=== PATIENT | male | born 1970 | race Two or more races ===

== ENCOUNTER 2016-12-16 12:08 | Inpatient (IN) | payer SELFPAY ==
[2016-12-16] MEDS ORDERED: OXYCODONE-ACETAMINOPHEN 5-325 MG TABLET PO ONE (13:15)
--- NOTE | 2016-12-16 13:22 | ER Document Report ---
ED Neck/Back Problem <SHANIA RENEE - Last Filed: 12/16/16 16:32> - General TRAVEL OUTSIDE OF THE [place] IN LAST 30 DAYS: No - HPI Timing: Constant Quality of pain: Sharp Pain Level: 4 Recent injury: No Associated symptoms: None Exacerbated by: Movement of neck Relieved by: Nothing Similar symptoms previously: No Recently seen / treated by doctor: Yes - [facility] ED <CHARLIE SWENSNO - Last Filed: 12/16/16 19:47> - General Chief Complaint: Neck Pain >24hrs old Stated Complaint: LEFT SIDE UPPER BODY PAIN Time Seen by Provider: 12/16/16 13:01 Notes: 46 yo male c/o left sided neck pain x 2 weeks. worsening x 3 days. no trauma. no radiculopathy. no paresthesia. no fever. pt as evaluated at [facility] ER last week for same. DC'd with Dx of osteoarathritis and treated with Flexeril and Motrin. pt reports no relief of symptoms, swelling worse pt admits to IV drug use. 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 Lives with: Family Family History: Reviewed & Not Pertinent Patient has suicidal ideation: No Patient has homicidal ideation: No - Medical History Medical History: Negative Renal/ Medical History: Denies: Hx Peritoneal Dialysis <CHARLIE SWENSON - Last Filed: 12/16/16 19:47> Review of Systems - Review of Systems Constitutional: No symptoms reported EENT: No symptoms reported Cardiovascular: No symptoms reported Respiratory: No symptoms reported Gastrointestinal: No symptoms reported Genitourinary: No symptoms reported Male Genitourinary: No symptoms reported Musculoskeletal: See HPI, Neck pain Skin: No symptoms reported Hematologic/Lymphatic: No symptoms reported Neurological/Psychological: No symptoms reported <CHARLIE SWENSON - Last Filed: 12/16/16 19:47> Physical Exam - Vital signs Interpretation: Tachycardic - pulse rechecked, 121 - General General appearance: Appears well, Alert - HEENT Head: Normocephalic, Atraumatic Eyes: Scleral icterus Cornea: Normal Pupils: PERRL Tympanic membrane: Normal Pharynx: Normal Neck: Other - + tenderness to posterior neck + swelling to left lateral neck. - Respiratory Respiratory status: No respiratory distress Chest status: Nontender Breath sounds: Normal Chest palpation: Normal - Cardiovascular Rhythm: Regular Heart sounds: Normal auscultation Murmur: No - Abdominal Inspection: Normal Distension: No distension Bowel sounds: Normal Tenderness: Nontender Organomegaly: No organomegaly - Back Back: Normal, Nontender - Extremities General upper extremity: Normal inspection, Nontender, Normal color, Normal ROM , Normal temperature General lower extremity: Normal inspection, Nontender, Normal color, Normal ROM , Normal temperature, Normal weight bearing. No: Aisha's sign - Neurological Neuro grossly intact: Yes Cognition: Normal Orientation: AAOx4 Geo Coma Scale Eye Opening: Spontaneous [place] Coma Scale Verbal: Oriented Geo Coma Scale Motor: Obeys Commands Geo Coma Scale Total: 15 Speech: Normal Motor strength normal: LUE, RUE, LLE, RLE Sensory: Normal - Psychological Associated symptoms: Normal affect, Normal mood - Skin Skin Temperature: Warm Skin Moisture: Dry Skin Color: Normal <CHARLIE SWENSON - Last Filed: 12/16/16 19:47> - Vital signs Vitals: Temp Pulse Resp BP Pulse Ox 98.0 F 141 H 14 127/88 H 96 12/16/16 12:20 12/16/16 12:20 12/16/16 12:20 12/16/16 12:20 12/16/16 12:20 Course - Laboratory Result Diagrams: 12/16/16 13:27 12/16/16 13:27 - Consults Dr. Medina Time consulted: 16:31 <SHANIA RENEE - Last Filed: 12/16/16 16:32> - Laboratory Result Diagrams: 12/16/16 13:27 12/16/16 13:27 - Transfer of Care Care transferred to following provider: Dr Renee <CHARLIE SWENSON - Last Filed: 12/16/16 19:47> - Re-evaluation Re-evalutation: 12/16/16 15:11 Assumed care of the patient. Reexamined. He is complaining mostly of left- sided neck pain and swelling extending to the left AC joint. Increased pain with left arm movement and fever. This has been progressively worsening. White blood cell count is 23.7. Potassium reported in the 2 range so we will start supplementation this. Vancomycin is already been ordered and Rocephin has already been completed. Awaiting CT scan of the neck. On exam he has general upper torso erythema consistent with sun exposure though he does seem to have tenderness and some edema at the left AC joint the edema seems more significant with some induration over the left posterior and lateral regions of the neck. Tachycardic but no obvious murmur noted. 12/16/16 16:24 T findings showed predominantly cellulitis of the left neck region extending from C1 to the left trapezius with abscess is too small to drain. For a was not significant of the chest. Neck clearly appears to be source though patient denied any injections in that region. Injected into the left upper extremity though. His potassium came back very low at 2.9. I will be contacting admitting doctors for admission at this point. (SHANIA RENEE) 12/16/16 13:22 I reviewed patient's discharge papers from [facility]. pt had a cervical CT wo which was negative other than osteoarthritis. 12/16/16 14:19 pt's WBC elevated at 23. will order blood cultures, lactic acid and IV antibiotics. discussed patient with Dr Plasencia. agrees with plan. recommends soft tissue neck CT with contrast. 12/16/16 14:[address] Renee 12/16/16 19:45 (CHARLIE SWENSON) - Vital Signs Vital signs: Temp Pulse Resp BP Pulse Ox 98.0 F 123 H 14 127/88 H 100 12/16/16 12:20 12/16/16 13:12 12/16/16 12:20 12/16/16 12:20 12/16/16 13:12 - Laboratory Laboratory results interpreted by me: 12/16/16 12/16/16 12/16/16 13:27 13:27 16:00 WBC 23.2 H Seg Neuts % (Manual) 87 H Lymphocytes % (Manual) 0 L Abs Neuts (Manual) 21.3 H Abs Lymphs (Manual) 0.0 L Abs Monocytes (Manual) 1.9 H Sodium 127.5 L Potassium 2.9 L* Chloride 85 L Carbon Dioxide 31 H Glucose 116 H Total Bilirubin 3.1 H Direct Bilirubin 2.5 H Alkaline Phosphatase 153 H Albumin 3.2 L Urine Blood SMALL H Urine Urobilinogen 4.0 H - Consults Dr. Medina Reason for consultation: 12/16/16 16:32 Consult for admission. PCP has no PCP. (SHANIA RENEE) Discharge - Discharge Unit Admitted: Medical Floor <SHANIA RENEE - Last Filed: 12/16/16 16:32> <CHARLIE SWENSON - Last Filed: 12/16/16 19:47> - Discharge Clinical Impression: Cellulitis and abscess of neck Condition: Fair Disposition: ADMITTED INPATIENT
[2016-12-16 13:48] LABS: HEMATOCRIT 42.3 % (37.9-51.0); HEMOGLOBIN 14.3 g/dL (13.5-17.0); HGB HCT DIFFERENCE 0.6; MEAN CORPUSCULAR HEMOGLOBIN 29.9 pg (27.0-33.4); MEAN CORPUSCULAR HGB CONC 33.8 g/dL (32.0-36.0); MEAN CORPUSCULAR VOLUME 88 fl (80-97); RED BLOOD COUNT 4.79 10^6/uL (4.35-5.55); RED CELL DISTRIBUTION WIDTH 13.3 % (11.5-14.0); WHITE BLOOD COUNT 23.2 10^3/uL (4.0-10.5)
[2016-12-16 14:20] LABS: BAND NEUTROPHILS % (MANUAL) 5 % (3-5); BASOPHILS % (MANUAL) 0 % (0-2); EOSINOPHILS % (MANUAL) 0 % (0-6); LYMPHOCYTES % (MANUAL) 0 % (13-45); TOTAL CELLS COUNTED 100
[2016-12-16 14:22] LABS: RBC MORPHOLOGY COMMENT NORMO-CYTIC/CHROMIC; TOXIC GRANULATION 1+; TOXIC VACUOLATION PRESENT
[2016-12-16] MEDS ORDERED: NORMAL SALINE 1000 ML 2,000 ML IV PRN (14:33)
[2016-12-16] MEDS ORDERED: VANCOMYCIN HCL INJ 1000 MG VIAL IV ONE ×2 (14:34→16:45)
[2016-12-16] MEDS ORDERED: CEFTRIAXONE RTU 1 GM/D5W 50 ML IV ONE (14:34)
[2016-12-16 14:50] LABS: ALANINE AMINOTRANSFERASE 71 U/L (21-72); ALBUMIN 3.2 g/dL (3.5-5.0); ALKALINE PHOSPHATASE 153 U/L (38-126); ANION GAP 12 (5-19); ASPARTATE AMINO TRANSFERASE 46 U/L (17-59); BILIRUBIN,DIRECT 2.5 mg/dL (0.0-0.4); BILIRUBIN,TOTAL 3.1 mg/dL (0.2-1.3); BLOOD UREA NITROGEN 14 mg/dL (7-20); CALCIUM 8.7 mg/dL (8.4-10.2); CARBON DIOXIDE 31 mmol/L (22-30); CHLORIDE 85 mmol/L (98-107); CREATININE RESULT 0.71 mg/dL (0.52-1.25); GLUCOSE 116 mg/dL (75-110); SODIUM 127.5 mmol/L (137-145); TOTAL PROTEIN 6.6 g/dL (6.3-8.2)
[2016-12-16] MEDS ORDERED: POTASSIUM CHLORIDE 10 MEQ TABLET.SA PO ONE (15:03)
[2016-12-16 15:14] LABS: POTASSIUM 2.9 mmol/L (3.6-5.0)
--- NOTE | 2016-12-16 15:21 | RADIOLOGY REPORT (SQ) ---
EXAM DESCRIPTION: CHEST SINGLE VIEW COMPLETED DATE/TIME: 12/16/2016 3:13 pm REASON FOR STUDY: Fever COMPARISON: None. EXAM PARAMETERS: NUMBER OF VIEWS: One view. TECHNIQUE: Single frontal radiographic view of the chest acquired. RADIATION DOSE: NA LIMITATIONS: None. FINDINGS: LUNGS AND PLEURA: No opacities, masses or pneumothorax. No pleural effusion. Linear atele ctasis is identified in the left lung base. MEDIASTINUM AND HILAR STRUCTURES: No masses. Contour normal. HEART AND VASCULAR STRUCTURES: Heart normal in size. Normal vasculature. BONES: No acute findings. HARDWARE: None in the chest. OTHER: No other significant finding. IMPRESSION: NO ACUTE RADIOGRAPHIC FINDING IN THE CHEST. TECHNICAL DOCUMENTATION: JOB ID: [id number]
--- NOTE | 2016-12-16 15:49 | RADIOLOGY REPORT (SQ) ---
EXAM DESCRIPTION: CT SOFT TISSUE NECK WITH COMPLETED DATE/TIME: 12/16/2016 3:22 pm REASON FOR STUDY: neck pain and swelling, IV drug user COMPARISON: None. TECHNIQUE: Post IV contrasted scanning from skull base through lung apices with review of bone, soft tissue and lung windows. Reconstructed coronal and sagittal MPR images reviewed. All images stored on PACS. All CT scanners at this facility use dose modulation, iterative reconstruction, and/or weight based d osing when appropriate to reduce radiation dose to as low as reasonably achievable (ALARA). [facility]: Dose Right [facility]: CareDose [facility]: Dose Right [facility]: Teradose 4D [facility]: Maximus CONTRAST TYPE AND DOSE: contrast/concentration: Isovue 370.00 mg/ml; Total Contrast Delivered: 74.0 ml; Total Saline Delivered: 40.1 ml RENAL FUNCTION: Creatinine 0.71 RADIATION DOSE: Up-to-date CT equipment and radiation dose reduction techniques were employed. CTDIv ol: 9.8 mGy. DLP: 347 mGy-cm. . LIMITATIONS: Study is limited due to artifact related to dental hardware. FINDINGS: SKULL BASE: Intact. MAJOR SALIVARY GLANDS: No solid or cystic masses. No inflammatory changes. LYMPHADENOPATHY: No adenopathy. MUCOSAL MASSES OR ASYMMETRY: No mucosal masses or asymmetry. LARYNX/CORDS: No abnormal findings. VASCULAR STRUCTURES: The major vessels are patent. LUNG APICES: Clear. BONES: Intact. THYROID: Normal size. No masses. PARANASAL SINUSES: Clear. OTHER: There is soft tissue asymmetry in the cervical musculature posterolaterally on the left with l oss of the normal fat and soft tissue planes and with relative low density areas being identified shyanne picious for abscess collections. These findings extend from the C1 level to the supraclavicular leve l on the left. IMPRESSION: Soft tissue asymmetry in the cervical musculature posterolaterally on the left as noted above with relative low density areas being identified suspicious for abscess collections. Clinical correlation is recommended. Other findings as noted above TECHNICAL DOCUMENTATION: JOB ID: [id number] Quality ID # [id number]: Final reports with documentation of one or more dose reduction techniques (e.g., Au tomated exposure control, adjustment of the mA and/or kV according to patient size, use of iterative reconstruction technique) 2010 [employer]- All Rights Reserved
[2016-12-16 16:36] LABS: APPEARANCE,URINE CLEAR; BILIRUBIN,URINE NEGATIVE (NEGATIVE); GLUCOSE, URINE NEGATIVE (NEGATIVE); KETONES,URINE NEGATIVE (NEGATIVE); LEUKOCYTE ESTERASE,URINE NEGATIVE (NEGATIVE); NITRITE,URINE NEGATIVE (NEGATIVE); PROTEIN,URINE NEGATIVE (NEGATIVE); URINE SPECIFIC GRAVITY 1.018
[2016-12-16 16:45] LABS: URINE BARBITURATES SCREEN NEGATIVE; URINE METHADONE SCREEN NEGATIVE; URINE OPIATES LOW UNCONFIRMED POSITIVE; URINE PHENCYCLIDINE SCREEN NEGATIVE
[2016-12-16] MEDS ORDERED: ACETAMINOPHEN 325 MG TABLET PO PRN (17:08)
[2016-12-16] MEDS ORDERED: ONDANSETRON 4 MG TAB.RAPDIS PO PRN (17:08)
[2016-12-16] MEDS ORDERED: ONDANSETRON HCL INJ/PF 4 MG/2 ML SDV IV PRN (17:08)
[2016-12-16] MEDS ORDERED: VANCOMYCIN HCL 0 MG in DEXTROSE 5%-WATER 250 ML IV NR (17:15)
--- NOTE | 2016-12-16 17:22 | PDOC H&P ---
History of Present Illness Admission Date/PCP: 12/16/16 16:51 Patient complains of: Fever and pain in the left neck History of Present Illness: GRECIA SEVERINO is a 46 year old male IV drug abuser who presents with complaints of left neck and shoulder pain along with fever up to 102. Patient reports that approximately 6 days ago he began to have pain in his left neck. This was after injecting some heroin into his left arm. Patient reports he had worsening swelling and has developed fever up to 102. He has difficulty turning his neck because of pain but does not have any photophobia and has no tenderness over the midline spinal area. CT of the neck shows multiple abscess and physical exam shows cellulitis of the left neck and left shoulder. The patient denies any shortness of breath or chest pain. Denies any visual changes. He denies any focal weakness or sensory changes in his arms or legs. Denies any bowel or bladder dysfunction. Past Medical History Cardiac Medical History: Reports: None Pulmonary Medical History: Reports: None EENT Medical History: Reports: None Neurological Medical History: Reports: None Endocrine Medical History: Reports: None Renal/ Medical History: Reports: None Malignancy Medical History: Reports: None Musculoskeltal Medical History: Reports: None Skin Medical History: Reports: None Psychiatric Medical History: Reports: Substance Abuse Traumatic Medical History: Reports: None Hematology: Reports: None Past Surgical History Past Surgical History: Reports: Orthopedic Surgery - Repair of hand fracture Social History Information Source: Parent Lives with: Family Smoking Status: Current Every Day Smoker Frequency of Alcohol Use: Occasional Hx Recreational Drug Use: Yes Drugs: Heroin Hx Prescription Drug Abuse: No - Advance Directive Resuscitation Status: Full Code Family History Family History: Father at age 56 with melanoma. Mother at age 65 and had Alzheimer's Parental Family History Reviewed: Yes Children Family History Reviewed: No Sibling(s) Family History Reviewed.: No Medication/Allergy Allergies/Adverse Reactions: No Known Allergies Allergy (Unverified 12/16/16 13:39) Review of Systems Constitutional: PRESENT: fatigue, fever(s). ABSENT: chills, headache(s), night sweats, weight gain, weight loss Eyes: ABSENT: visual disturbances Ears: ABSENT: hearing changes Cardiovascular: ABSENT: chest pain, dyspnea on exertion, edema, orthropnea, palpitations Respiratory: ABSENT: cough, hemoptysis Gastrointestinal: ABSENT: abdominal pain, constipation, diarrhea, hematemesis, hematochezia, nausea, vomiting Genitourinary: ABSENT: dysuria, hematuria Musculoskeletal: PRESENT: other - Swelling and pain in the left neck and shoulder area. Integumentary: PRESENT: other - Swelling of the left neck and shoulder area Neurological: ABSENT: abnormal gait, abnormal speech, confusion, dizziness, focal weakness, syncope Psychiatric: ABSENT: anxiety, depression Endocrine: ABSENT: cold intolerance, heat intolerance, polydipsia, polyuria Hematologic/Lymphatic: ABSENT: easy bleeding, easy bruising Physical Exam Vital Signs: Temp Pulse Resp BP Pulse Ox 98.0 F 123 H 14 127/88 H 100 12/16/16 12:20 12/16/16 13:12 12/16/16 12:20 12/16/16 12:20 12/16/16 13:12 General appearance: PRESENT: no acute distress, well-developed, well-nourished Head exam: PRESENT: atraumatic, normocephalic Eye exam: PRESENT: conjunctiva pink, EOMI, PERRLA. ABSENT: scleral icterus Ear exam: PRESENT: normal external ear exam Mouth exam: PRESENT: moist, tongue midline Neck exam: PRESENT: other - Soft tissue swelling on the left lateral neck involving the left paraspinal muscles down to the left AC joint.. ABSENT: carotid bruit, JVD, lymphadenopathy, thyromegaly Respiratory exam: PRESENT: clear to auscultation yasmine. ABSENT: rales, rhonchi, wheezes Cardiovascular exam: PRESENT: RRR. ABSENT: diastolic murmur, rubs, systolic murmur Pulses: PRESENT: normal dorsalis pedis pul Vascular exam: PRESENT: normal capillary refill GI/Abdominal exam: PRESENT: normal bowel sounds, soft. ABSENT: distended, guarding, mass, organolmegaly, rebound, tenderness Rectal exam: PRESENT: deferred Extremities exam: ABSENT: calf tenderness, clubbing, pedal edema Neurological exam: PRESENT: alert, awake, oriented to person, oriented to place , oriented to time, oriented to situation, CN II-XII grossly intact. ABSENT: motor sensory deficit Psychiatric exam: PRESENT: appropriate affect Skin exam: PRESENT: other - Erythema and swelling of the left neck down to the left AC joint Results Impressions: Soft Tissue Neck CT 12/16/16 14:35 IMPRESSION: Soft tissue asymmetry in the cervical musculature posterolaterally on the left as noted above with relative low density areas being identified suspicious for abscess collections. Clinical correlation is recommended. Other findings as noted above Chest X-Ray 12/16/16 14:42 IMPRESSION: NO ACUTE RADIOGRAPHIC FINDING IN THE CHEST. Assessment & Plan - Diagnosis (1) Cellulitis and abscess of neck Is this a current diagnosis for this admission?: YesPlan: Patient has been injecting IV drugs. He has soft tissue swelling of the left neck and shoulder. CT scan shows several small abscesses. The patient has no evidence for discitis on exam. Spine is nontender to palpation and he has normal neurological exam. We will start on IV vancomycin and Zosyn. Will consult general surgery to see if any of these areas need to be opened up. Patient has no evidence for endocarditis on exam. (2) IV drug abuse Is this a current diagnosis for this admission?: YesPlan: Patient has been using IV heroin but does not abuse any other drugs. - Time Time Spent: 50 to 70 Minutes - Inpatient Certification Medical Necessity: Need for IV Antibiotics
[2016-12-16] MEDS: NORMAL SALINE 1000 ML 1,000 ML IV PRN (19:55)
[2016-12-16] MEDS: PIPERACILLIN SODIUM/TAZOBACTAM 3.375 GM in NORMAL SALINE 100 ML IV SCH (20:28)
[2016-12-16] MEDS: HYDROMORPHONE HCL INJ/PF 2 MG/ML AMPULE IV PRN (20:29)
--- NOTE | 2016-12-16 20:49 | PDOC CONSULTATION ---
Consultation Consult Date: 12/16/16 Consult reason:: left neck and chest cellulitis with possible deep neck abscess History of Present Illness Admission Date/PCP: 12/16/16 17:08 History of Present Illness: GRECIA SEVERINO is a 46 year old male IV heroin abuser who presents with complaints of left neck and shoulder pain along with fever up to 102 which started approximately 6 days ago after he injected some heroin into his left arm beforehand. The patient reports he had worsening swelling and has developed fever up to 102. He has difficulty turning his neck because of pain; denies headache, photophobia, and has no tenderness over the midline spinal area. A CT of the neck soft tissue shows multiple abscess and he has severe swelling of the left neck and left shoulder. Past Medical History Cardiac Medical History: Reports: None Pulmonary Medical History: Reports: None EENT Medical History: Reports: None Neurological Medical History: Reports: None Endocrine Medical History: Reports: None Renal/ Medical History: Reports: None Malignancy Medical History: Reports: None Musculoskeltal Medical History: Reports: None Skin Medical History: Reports: None Psychiatric Medical History: Reports: Substance Abuse Psychiatric History Note: admits to the use of heroin during the past year Traumatic Medical History: Reports: None Hematology: Reports: None Past Surgical History Past Surgical History: Reports: Orthopedic Surgery - Repair of hand fracture Social History Lives with: Family Smoking Status: Current Every Day Smoker Frequency of Alcohol Use: Occasional Hx Recreational Drug Use: Yes Drugs: Heroin Hx Prescription Drug Abuse: No - Advance Directive Resuscitation Status: Full Code Family History Family History: Reviewed & Not Pertinent Parental Family History Reviewed: Yes Children Family History Reviewed: Yes Sibling(s) Family History Reviewed.: Yes Medication/Allergy Allergies/Adverse Reactions: No Known Allergies Allergy (Unverified 12/16/16 13:39) Physical Exam Vital Signs: Temp Pulse Resp BP Pulse Ox 97.8 F 115 H 17 121/75 99 12/16/16 17:43 12/16/16 17:43 12/16/16 17:43 12/16/16 17:43 12/16/16 17:43 Results Impressions: Soft Tissue Neck CT 12/16/16 14:35 IMPRESSION: Soft tissue asymmetry in the cervical musculature posterolaterally on the left as noted above with relative low density areas being identified suspicious for abscess collections. Clinical correlation is recommended. Other findings as noted above Chest X-Ray 12/16/16 14:42 IMPRESSION: NO ACUTE RADIOGRAPHIC FINDING IN THE CHEST. Assessment & Plan - Plan Summary Plan Summary: Assessment: Left neck and chest edema and multiple abscesses on CT scan following heroin injection into the left upper extremity vein 1 week ago Patient on vanco/Zosyn Severe leuycocytosis (23k) Plan: This patient requires immediate ENT consultation as the neck deep abscesses represent a difficult surgical problem that needs to be addressed by a neck surgeon. Dr. Perea from ENT has been consulted by the Hospitalist Dr. Guthrie and will take over the surgical care of this patient. I will sign off. Please, call us with questions.
[2016-12-16] MEDS ORDERED: DEXAMETHASONE SOD PHOS INJ 10 MG/1 ML VIAL IV ONE (21:45)
--- NOTE | 2016-12-16 22:19 | CONSULTATION REPORT E ---
Consultation Report NAME: GRECIA SEVERINO : 1970 AGE: 46Y DATE: 12/16/2016 414 A TO: SEFERINO ZUNIGA III, M.D. FROM: Requesting Physician PRESENT ILLNESS: The patient is a 46-year-old male who freely admits to abusing heroin with placing the drug in his left arm and noted some onset of discomfort in the posterior aspect of the left side of his neck approximately 6 days ago. Four days ago this became increasingly uncomfortable. He presented himself to a [facility] where a CAT scan was obtained and the patient was told that he had simply arthritis of his cervical spine and no particular treatment was offered. His symptoms have increased and he presented himself to the emergency room at [facility] for evaluation. His temperature has ranged to 102. His white count is 23,000 with a left shift towards a neutrophilic count. A CT scan raised a question of multiple abscesses versus cellulitis with phlegmon formation in the posterior aspect of the left neck. The patient has been admitted to the hospitalist service and Dr. Sohail Gilman contacted me for an urgent consultation. The patient has been started on IV vancomycin and IV Zosyn. He thought perhaps he might have had some small pimples in the back of his scalp on both sides, although he did not manipulate them a great deal. He has had no penetrating injuries to his left neck. He has not had this kind of problem presented in the past. PHYSICAL EXAMINATION: Bedside examination showed a well-developed, quite rabago-appearing 46-year-old gentleman in no acute distress and certainly with no airway problems. He has a full face tamez, mustache and thinning hair. In palpation of his neck, there is erythema and diffuse swelling from the occiput down to the clavicle on the left side, but this is so tense it is impossible to determine any fluctuance, plus it is quite tender. There is no similar problem on the right side. IMPRESSION: My impression is that he has cellulitis and phlegmon formation with possible early abscess formation in the posterior neck on the left side. RECOMMENDATIONS: I agree with his intravenous antibiotic therapy. I would add Decadron 10 mg IV every 6 hours immediately. I will follow the patient along with you. I would keep him n.p.o. until I can see him at noon tomorrow to determine which direction this infection seems to be headed. If he gets no improvement, a repeat CT scan can be considered and the patient may require general anesthesia and incision and drainage of these multiple abscesses in the left side of his neck. If he gets some dramatic improvement, we may persist with his intravenous antibiotic therapy for the next few days. I certainly agree with the ordering of blood cultures for this patient also. Thank you very much for this consultation. DICTATING PHYSICIAN: SEFERINO ZUNIGA III M.D. [id number] PHY#: [id number] ID: [id number] JOB#: [id number] ACCT: [id number] cc:SEFERINO ZUNIGA III, M.D. > MTDD
[2016-12-17] MEDS: VANCOMYCIN HCL 1,000 MG in DEXTROSE 5%-WATER 250 ML IV SCH ×3 (01:30→18:37)
[2016-12-17] MEDS: PIPERACILLIN SODIUM/TAZOBACTAM 3.375 GM in NORMAL SALINE 100 ML IV SCH ×3 (03:12→18:35)
[2016-12-17] MEDS: DEXAMETHASONE SOD PHOS INJ 10 MG/1 ML VIAL IV SCH ×3 (03:13→18:35)
[2016-12-17] MEDS: NORMAL SALINE 1000 ML 1,000 ML IV PRN (05:20)
[2016-12-17 06:29] LABS: ANION GAP 10 (5-19); BLOOD UREA NITROGEN 11 mg/dL (7-20); CALCIUM 8.2 mg/dL (8.4-10.2); CARBON DIOXIDE 29 mmol/L (22-30); CHLORIDE 93 mmol/L (98-107); CREATININE RESULT 0.57 mg/dL (0.52-1.25); GLUCOSE 128 mg/dL (75-110); POTASSIUM 3.2 mmol/L (3.6-5.0); SODIUM 131.7 mmol/L (137-145)
[2016-12-17 06:37] LABS: HEMATOCRIT 38.4 % (37.9-51.0); HEMOGLOBIN 13.2 g/dL (13.5-17.0); HGB HCT DIFFERENCE 1.2; MEAN CORPUSCULAR HGB CONC 34.2 g/dL (32.0-36.0); MEAN CORPUSCULAR VOLUME 88 fl (80-97); RED BLOOD COUNT 4.39 10^6/uL (4.35-5.55); RED CELL DISTRIBUTION WIDTH 13.5 % (11.5-14.0); WHITE BLOOD COUNT 19.5 10^3/uL (4.0-10.5)
[2016-12-17 07:07] LABS: BAND NEUTROPHILS % (MANUAL) 14 % (3-5); BASOPHILS % (MANUAL) 0 % (0-2); EOSINOPHILS % (MANUAL) 0 % (0-6); LYMPHOCYTES % (MANUAL) 1 % (13-45); RBC MORPHOLOGY COMMENT NORMO-CYTIC/CHROMIC; TOTAL CELLS COUNTED 100; TOXIC GRANULATION 1+; TOXIC VACUOLATION PRESENT
[2016-12-17] MEDS: HYDROMORPHONE HCL INJ/PF 2 MG/ML AMPULE IV PRN (09:20)
[2016-12-17] MEDS ORDERED: POTASSIUM CHLORIDE 10 MEQ TABLET.SA PO SCH (10:00)
--- NOTE | 2016-12-17 10:50 | PDOC PROGRESS REPORT ---
Subjective Progress Note for:: 12/17/16 Subjective:: Continues to complain of pain in the left side of his neck. Physical Exam Vital Signs: Temp Pulse Resp BP Pulse Ox 97.8 F 102 H 18 135/73 H 96 12/17/16 07:18 12/17/16 07:18 12/17/16 07:18 12/17/16 07:18 12/17/16 07:18 Intake & Output 12/16/16 12/17/16 12/18/16 06:59 06:59 06:59 Intake Total 0 Balance 0 Weight 67.5 kg General appearance: PRESENT: no acute distress Eye exam: PRESENT: conjunctiva pink. ABSENT: scleral icterus Mouth exam: PRESENT: moist, tongue midline Neck exam: PRESENT: tenderness - Tenderness and soft tissue swelling on the left side of his neck. This is only slightly decreased from yesterday. Still with erythema. ABSENT: carotid bruit, JVD, lymphadenopathy Respiratory exam: PRESENT: clear to auscultation yasmine. ABSENT: rales, rhonchi, wheezes Cardiovascular exam: PRESENT: RRR. ABSENT: diastolic murmur, rubs, systolic murmur GI/Abdominal exam: PRESENT: normal bowel sounds, soft. ABSENT: distended, guarding, mass, organolmegaly, rebound, tenderness Extremities exam: ABSENT: calf tenderness, clubbing, pedal edema Neurological exam: PRESENT: alert, awake, oriented to person, oriented to place , oriented to time, oriented to situation, CN II-XII grossly intact. ABSENT: motor sensory deficit Psychiatric exam: PRESENT: appropriate affect Skin exam: PRESENT: dry, intact, warm. ABSENT: cyanosis, rash Results Laboratory Results: 12/17/16 04:22 12/17/16 04:22 12/17/16 12/17/16 04:22 04:22 WBC 19.5 H RBC 4.39 Hgb 13.2 L Hct 38.4 MCV 88 MCH 30.0 MCHC 34.2 RDW 13.5 Plt Count 157 Seg Neutrophils % Not Reportable Lymphocytes % Not Reportable Monocytes % Not Reportable Eosinophils % Not Reportable Basophils % Not Reportable Absolute Neutrophils Not Reportable Absolute Lymphocytes Not Reportable Absolute Monocytes Not Reportable Absolute Eosinophils Not Reportable Absolute Basophils Not Reportable Sodium 131.7 L Potassium 3.2 L Chloride 93 L Carbon Dioxide 29 Anion Gap 10 BUN 11 Creatinine 0.57 Est GFR ( Amer) > 60 Est GFR (Non-Af Amer) > 60 Glucose 128 H Calcium 8.2 L Impressions: Soft Tissue Neck CT 12/16/16 14:35 IMPRESSION: Soft tissue asymmetry in the cervical musculature posterolaterally on the left as noted above with relative low density areas being identified suspicious for abscess collections. Clinical correlation is recommended. Other findings as noted above Chest X-Ray 12/16/16 14:42 IMPRESSION: NO ACUTE RADIOGRAPHIC FINDING IN THE CHEST. Assessment & Plan - Diagnosis (1) Cellulitis and abscess of neck Is this a current diagnosis for this admission?: YesPlan: Patient has been injecting IV drugs. He has soft tissue swelling of the left neck and shoulder. CT scan shows several small abscesses. The patient has no evidence for discitis on exam. Spine is nontender to palpation and he has normal neurological exam. Continue with vancomycin and Zosyn. ENT has evaluated the patient and will reevaluate the patient today to see if he needs any surgical intervention (2) IV drug abuse Is this a current diagnosis for this admission?: YesPlan: Patient has been using IV heroin but does not abuse any other drugs. - Time Time Spent with patient: 25-34 minutes - Inpatient Certification Medical Necessity: Need for IV Antibiotics
[2016-12-17] MEDS ORDERED: HYDROMORPHONE HCL INJ/PF 2 MG/ML AMPULE IV PRN (11:26)
[2016-12-17] MEDS ORDERED: ONDANSETRON HCL INJ/PF 4 MG/2 ML SDV IV PRN (11:27)
[2016-12-17] MEDS ORDERED: ONDANSETRON 4 MG TAB.RAPDIS PO PRN (11:27)
--- NOTE | 2016-12-17 13:29 | PDOC TRANSFER SUMMARY ---
General Admission Date/PCP: 12/16/16 17:08 Transfer Date: 12/17/16 Accepting Facility: [facility] Accepting Physician: dr Ruben Ozuna Resuscitation Status: Full Code - Transfer Diagnosis (1) Cellulitis and abscess of neck Is this a current diagnosis for this admission?: YesDiagnosis Summary: Growing gram-positive cocci from 2/2 blood cultures. Currently on vancomycin and Zosyn (2) IV drug abuse Is this a current diagnosis for this admission?: Yes - Transfer Medications Home Medications: No Home Medications 12/16/16 Transfer Medications: Current Medications Acetaminophen (Tylenol 325 Mg Tablet) 650 mg PO Q4HP PRN PRN Reason: FOR PAIN OR TEMP Stop: 01/15/17 17:07 Dexamethasone Sodium Phosphate (Decadron Inj 10 Mg/1 Ml Vial) 10 mg IV Q6A [facility] Stop: 01/16/17 02:59 Last Admin: 12/17/16 08:16 Dose: 10 mg Hydromorphone HCl (Dilaudid Inj/Pf 2 Mg/Ml Ampule) 1 mg IV Q4HP PRN PRN Reason: FOR PAIN Stop: 12/23/16 17:12 Sodium Chloride (Nacl 0.9% 1000 Ml Iv Soln) 1,000 mls @ 150 mls/hr IV CONTINUOUS PRN PRN Reason: THIS MED IS NOT "PRN" Stop: 01/15/17 17:07 Last Admin: 12/17/16 05:20 Dose: 1,000 ml Piperacillin Sod/Tazobactam (Sod 3.375 gm/ Sodium Chloride) 100 mls @ 200 mls/ hr IV Q6A RAMON Stop: 12/23/16 20:59 Last Admin: 12/17/16 08:16 Dose: 3.375 gm Vancomycin HCl 1,000 mg/ (Dextrose) 250 mls @ 166.667 mls/hr IV Q8A RAMON Stop: 12/24/16 01:59 Last Admin: 12/17/16 09:20 Dose: 1,000 mg Ondansetron HCl (Zofran Inj/Pf 4 Mg/2 Ml Sdv) 4 mg IV Q6HP PRN PRN Reason: FOR NAUSEA/VOMITING Stop: 01/15/17 17:07 Ondansetron HCl (Zofran Odt 4 Mg Tablet) 4 mg PO Q6HP PRN PRN Reason: FOR NAUSEA/VOMITING Stop: 01/15/17 17:07 Potassium Chloride (Klor-Con 10 Meq Tablet.Sa) 20 meq PO Q12 RAMON Stop: 01/16/17 09:59 Last Admin: 12/17/16 09:20 Dose: 20 meq - Allergies Allergies/Adverse Reactions: No Known Allergies Allergy (Unverified 12/16/16 13:39) - Diet/Activity Discharge Diet: Regular Hospital Course Hospital Course: 46-year-old male who is an IV drug abuser but has no other past medical history who presented on December 16 with left neck swelling. Patient reports that over the last week he had worsening swelling. He is a known IV drug abuser. Patient had a CT scan which showed multiple small abscesses present from the base of the left skull to the left clavicle. He was noted to have a fever of 102. The patient was started on IV vancomycin and Zosyn empirically. The patient is growing out gram positives from blood cultures. The patient was seen by ENT surgery yesterday evening and they recommended adding on Decadron. Patient was reevaluated by ENT surgery this morning and recommended the patient be transferred to a tertiary care center for surgical intervention. The ENT surgeon is a locums and was going off service and would not be available for this procedure. The case was discussed with Dr. Hutchins of ENT surgery at [facility] as well as with Dr. Ozuna of the medicine service. They have agreed to accept the patient in transfer. We do not have ENT surgery service is available at this time at our facility Physical Exam Vital Signs: Temp Pulse Resp BP Pulse Ox 97.8 F 102 H 18 135/73 H 96 12/17/16 07:18 12/17/16 07:18 12/17/16 07:18 12/17/16 07:18 12/17/16 07:18 Intake & Output 12/16/16 12/17/16 12/18/16 06:59 06:59 06:59 Intake Total 0 Balance 0 Weight 67.5 kg General appearance: PRESENT: no acute distress Eye exam: PRESENT: conjunctiva pink. ABSENT: scleral icterus Mouth exam: PRESENT: moist, tongue midline Neck exam: PRESENT: tenderness - Left neck swelling and mild tenderness with erythema. Minimal change from yesterday evening.. ABSENT: carotid bruit, JVD, lymphadenopathy, thyromegaly Respiratory exam: PRESENT: clear to auscultation yasmine. ABSENT: rales, rhonchi, wheezes Cardiovascular exam: PRESENT: RRR. ABSENT: diastolic murmur, rubs, systolic murmur GI/Abdominal exam: PRESENT: normal bowel sounds, soft. ABSENT: distended, guarding, mass, organolmegaly, rebound, tenderness Rectal exam: PRESENT: deferred Extremities exam: ABSENT: calf tenderness, clubbing, pedal edema Neurological exam: PRESENT: alert, awake, oriented to person, oriented to place , oriented to time, oriented to situation, CN II-XII grossly intact. ABSENT: motor sensory deficit Psychiatric exam: PRESENT: appropriate affect Skin exam: PRESENT: dry, intact, warm, other - Erythema and swelling over the left neck from the skull base to the clavicle.. ABSENT: cyanosis Results Laboratory Results: 12/17/16 04:22 12/17/16 04:22 12/17/16 12/17/16 04:22 04:22 WBC 19.5 H RBC 4.39 Hgb 13.2 L Hct 38.4 MCV 88 MCH 30.0 MCHC 34.2 RDW 13.5 Plt Count 157 Seg Neutrophils % Not Reportable Lymphocytes % Not Reportable Monocytes % Not Reportable Eosinophils % Not Reportable Basophils % Not Reportable Absolute Neutrophils Not Reportable Absolute Lymphocytes Not Reportable Absolute Monocytes Not Reportable Absolute Eosinophils Not Reportable Absolute Basophils Not Reportable Sodium 131.7 L Potassium 3.2 L Chloride 93 L Carbon Dioxide 29 Anion Gap 10 BUN 11 Creatinine 0.57 Est GFR ( Amer) > 60 Est GFR (Non-Af Amer) > 60 Glucose 128 H Calcium 8.2 L Impressions: Soft Tissue Neck CT 12/16/16 14:35 IMPRESSION: Soft tissue asymmetry in the cervical musculature posterolaterally on the left as noted above with relative low density areas being identified suspicious for abscess collections. Clinical correlation is recommended. Other findings as noted above Chest X-Ray 12/16/16 14:42 IMPRESSION: NO ACUTE RADIOGRAPHIC FINDING IN THE CHEST. Plan Discharge Plan: Patient is to be transferred to [facility], Dr. Ozuna is the accepting physician of the general medical service. Time Spent: Greater than 30 Minutes
[2016-12-17 16:29] VITALS: BP 131/82
[2016-12-18 15:55] LABS: PATH REVIEW PATHOLOGIST REVIEWED
== END 2016-12-17 19:50 | disposition short-term general hospital (02) | DRG 603 ==
LOC: EDBD → ER 12:08 → UNDOADMIN 16:51 → EH 16:51 → 4N 18:42
PROVIDERS: ADMIT Internal Medicine; ATTEND Internal Medicine
DX: L03.221 Cellulitis of neck (principal); L03.114 Cellulitis of left upper limb; L02.414 Cutaneous abscess of left upper limb; L02.11 Cutaneous abscess of neck; F17.200 Nicotine dependence, unspecified, uncomplicated; F11.10 Opioid abuse, uncomplicated; Z80.8 Family history of malignant neoplasm of other organs or systems
CPT/HCPCS: 36415; 70491; 71010; 80048; 80053; 80074; 80307; 81001; 83605; 83735; 85025; 87040; 87077; 87186; 96361; 96365; 96367; 99285; J0696; J1100; J1170; J2543; J3370; J7030; J7060

== ENCOUNTER 2020-06-02 18:43 | Emergency (ER) | payer SELFPAY ==
--- NOTE | 2020-06-02 21:55 | RADIOLOGY REPORT (SQ) ---
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 FINDINGS: 3 views were obtained. Moderate AC joint and glenohumeral joint arthrosis are noted. A suspected well-corticated ossific density is evident about the axillary recess, presumably a loose body. Otherwise, no acute fracture or dislocation is noted. Visualized portions of the right lung are clear. IMPRESSION: No acute osseous anomaly. Moderate AC joint and glenohumeral joint arthrosis.
--- NOTE | 2020-06-02 22:46 | ER Document Report ---
HPI - HPI Time Seen by Provider: 06/02/20 20:18 Context: Patient is a 49-year-old male who presents to the emergency department with a chief complaint of right shoulder pain. He has had his symptoms for the past 3 days. 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 Denies any fever, body aches, or chills. Patient does have a history of IV drug use. He is a current everyday smoker. States that he is not able to move his shoulder due to the pain. Patient reports history of dislocating his right shoulder joint. - ROS Systems Reviewed and Negative: Yes All other systems reviewed and negative - CONSTITUTIONAL Constitutional: DENIES: Fever, Chills - NEURO Neurology: DENIES: Headache - RESPIRATORY Respiratory: DENIES: Trouble Breathing, Coughing - MUSCULOSKELETAL Musculoskeletal: REPORTS: Extremity pain - Right shoulder. DENIES: Swelling - DERM Skin Color: Normal Skin Problems: None Past Medical History - General Information source: Patient - Social History Smoking Status: Current Every Day Smoker Family History: Reviewed & Not Pertinent Renal/ Medical History: Denies: Hx Peritoneal Dialysis Psychiatric Medical History: Denies: Hx Depression Past Surgical History: Reports: Hx Orthopedic Surgery - Repair of hand fracture Vertical Provider Document - CONSTITUTIONAL Agree With Documented VS: Yes Exam Limitations: No Limitations General Appearance: No Apparent Distress - INFECTION CONTROL TRAVEL OUTSIDE OF THE [place] IN LAST 30 DAYS: No - HEENT HEENT: Atraumatic, Normocephalic, PERRLA - NECK Neck: Normal Inspection - RESPIRATORY Respiratory: No Respiratory Distress - CARDIOVASCULAR Cardiovascular: Regular Rate, Regular Rhythm Pulses: Normal: Radial - MUSCULOSKELETAL/EXTREMETIES Musculoskeletal/Extremeties: Tender - Right shoulder. negative: FROM - Decreased right shoulder joint - NEURO Level of Consciousness: Awake, Alert, Appropriate Motor/Sensory: No Motor Deficit, No Sensory Deficit - DERM Integumentary: Warm, Dry, No Rash Course - Re-evaluation Re-evalutation: 06/02/20 There is moderate AC joint and glenohumeral joint arthrosis. There is also presumably a loose body. No fracture or dislocation was noted by the radiologist. Capillary refill less than 3 seconds. Radial pulse 2+. No vascular compromise noted. Patient was placed in a sling. Advised patient to follow-up with orthopedics, as he most likely needs surgical intervention. He is in agreement with this plan. Follow-up precautions were given. Verbal discharge instructions were given to the patient. They verbalized understanding. They are stable for discharge. - Laboratory Results Critical Laboratory Results Reviewed: No Critical Results - Radiology Results Critical Radiology Results Reviewed: No Critical Results Procedures - Immobilization Right Shoulder Pre-Proc Neuro Vasc Exam: Normal Immobilizer type: Sling Performed by: Provider Post-Proc Neuro Vasc Exam: Normal, Unchanged from pre-exam Alignment checked and good: Yes Discharge - Discharge Clinical Impression: Right shoulder pain Qualifiers: Chronicity: acute Qualified Code(s): M25.511 - Pain in right shoulder Condition: Stable Disposition: HOME, SELF-CARE Additional Instructions: You were seen today in the emergency department for right shoulder pain. Wear the sling. Follow-up with orthopedics tomorrow. Prescriptions: Cyclobenzaprine HCl [Flexeril 10 mg Tablet] 10 mg PO TIDP PRN #15 tab PRN Reason: Forms: Return to Work Referrals: [facility] [Provider Group] - Follow up tomorrow [facility] [Provider Group] - Follow up tomorrow
[2020-06-02 22:54] VITALS: BP 123/74
[2020-06-02] MEDS ORDERED: CYCLOBENZAPRINE HCL 10 MG TABLET PO ONE (22:55)
== END 2020-06-02 22:55 | disposition home or self-care (01) ==
LOC: ER 18:43
DX: M25.511 Pain in right shoulder (principal); F17.200 Nicotine dependence, unspecified, uncomplicated
CPT/HCPCS: 99283